=== PATIENT | female | born 1995 | race Caucasian/White ===

== ENCOUNTER 2022-03-01 14:08 | Emergency (ER) | payer OTHER ==
--- OUTSIDE RECORDS SUMMARY | 2022-03-01 14:11 | XMS REPORT | Continuity of Care Document ---
:1995 Author Organization [facility] t Address [address] Banerjee [address] [place] [id number] Care Team Providers Name Role Phone [place] Attending Clinician Unavailable AMBREEN_FARHANA Attending Clinician Unavailable AMBREEN_FARHANA Admitting Clinician Unavailable Payers Payer Name Policy Type Policy Number Effective Date Expiration Date S ct EAST - HU[employer]NA [id number] () Problems Condition Condition Condition Status Onset Resolution Last Treating Co mments Source Name Details Category Date Date Treatment Clinician Date Anxiety Anxiety Problem Active [place] 1-04 [facility] 00:[facility]: [facility] Attention Attention Problem Active [place] deficit Deficit 1-04 da hyperactiv Hyperactiv 00:00: [facility] ity ity 00 al disorder Disorder [facility] Allergies, Adverse Reactions, Alerts This patient has no known allergies or adverse reactions. Social History Smoking Status Start Date Stop Date Source Never Smoker [facility] Medications Ordered Filled Start Stop Current Ordering Indication Dosage Frequency Signature Comments Components Source Medication Medication Date Date Medication? Clinician (SIG) Name Name Vyvanse 30 Vyvanse 30 No Vyvanse 30 [place] mg capsule mg capsule 4-05 mg capsule da TAKE 1 TAKE 1 00:00: TAKE 1 [facility] CAPSULE BY CAPSULE BY 00 CAPSULE BY al MOUTH DAILY MOUTH DAILY MOUTH Health NEEDED NEEDED DAILY O utreac FOR FOR NEEDED FOR h CONCENTRATI CONCENTRATI CONCENTRAT Program ON ON ION Vyvanse 20 Vyvanse 20 No Vyvanse 20 [place] mg capsule mg capsule mg capsule da TAKE 1 TAKE 1 TAKE 1 [facility] CAPSULE BY CAPSULE BY CAPSULE BY al MOUTH DAILY MOUTH DAILY MOUTH Health NEEDED NEEDED DAILY O utreac FOR FOR NEEDED FOR h CONCENTRATI CONCENTRATI CONCENTRAT Program ON ON ION Immunizations Ordered Immunization Filled Immunization Date Status Commen ts Source Name Name Tdap Tdap 2020-10-18 Completed [facility] 13:52:00 [facility] Vital Signs Vital Name Observation Time Observation Value Comments Source Height 2021-01-17 00:00:00 68 [in_i] [place] [facility] BP Diastolic 2020-10-18 00:00:00 80 mm[Hg] [place] [facility] Height 2020-10-18 00:00:00 68 [in_i] [place] [facility] BMI (Body Mass 2020-10-18 00:00:00 18.1 kg/m2 [place]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 [facility] Index) [facility] Outreach Program BP Systolic 2020-10-18 00:00:00 124 mm[Hg] [place] [facility] Body Weight 2020-10-18 00:00:00 1902.4 [oz_av] [place]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 Procedures Procedure Date / Time Performed Performing Clinician Sourc e US, thyroid 2020-10-18 00:00:00 [facility] Extraction of [place] [facility] Plan of Care Planned Activity Planned Date Details Comments Source Future Scheduled 2021-02-25 CMP, serum or [facility] Test 00:00:00 plasma [code = Health Outrea ch CMP, serum or Program plasma] Future Scheduled 2021-02-25 PT/INR [code = [facility] Test 00:00:00 PT/INR] Health Outreach Program Future Scheduled 2021-02-25 bilirubin, [facility] Test 00:00:00 indirect, serum Health Outre ach [code = bilirubin, Program indirect, serum] Encounters Start End Encounter Admission Attending Care Care Encounter Source Date/Time Date/Time Type Type Clinicians Facility Department ID 2021-11-09 [facility] [id number] Common 14:06:28 Thais [id number] 2021-11-09 Outpatient [facility] [id number] Common 14:04:59 [id number] [facility] 2021-01-172021-01-17 Outpatient AMBREEN_FAR MEHOP MEHOP [id number]- [place] 04:55:00 04:55:00 HANA [id number] [facility] 2021-01-17 2021-01-17 [facility] [place] - [id number] M [facility] 00:00:00 00:00:00 Todd Gavin MD: 1700 [facility] [address], [place], [place] Outre [phone] h , Ph. Program 2021-01-12 2021-01-12 Outpatient AMBREEN_FAR MEHOP MEHOP 112 [id number]- [place] 03:56:00 03:56:00 HANA [id number] [facility] 2020-10-23 2020-10-23 Outpatient AMBREEN_FAR MEHOP MEHOP [id number] [place] 03:20:00 03:20:00 HANA [id number] [facility] 2020-10-23 2020-10-23 Outpatient AMBREEN_FAR MEHOP MEHOP 112 [id number]- [place] 03:20:00 03:20:00 HANA [id number] [facility] 2020-10-18 2020-10-18 Outpatient AMBREEN_FAR MEHOP MEHOP [id number] [place] 01:13:00 01:13:00 HANA [id number] [facility] 2020-10-18 2020-10-18 Ayla [facility] [place] - [id number] M at[place] 00:00:00 00:00:00 Todd Gavin MD: 1700 [facility] [address] [place] [phone] h , Ph. Program 2020-10-12 2020-10-12 Outpatient AMBREEN_FAR MEHOP MEHOP 112 [id number]- [place] 04:27:00 04:27:00 HANSai [id number] [facility] 2020-09-15 2020-09-15 Outpatient AMBREEN_FAR MEHOP MEHOP 112 [id number]- [place] 03:07:00 03:07:00 MINOR [id number] da [facility] 2020-09-08 2020-09-08 Outpatient AMBREEN_FAR [facility] [place] 09:50:00 09:50:00 HANA [id number] da [facility] Results Test Description Test Time Test Comments Results Result Comments Source Hemoglobin A1c/Hemoglobin.total in Blood 2021-01-07 00:00:00 Test Item Value Reference Range Interpretation Comme nts Hemoglobin A1c/Hemoglobin.total in Blood (test code = 4548-4) 4.8 % 4.8-5.6 Glucose mean value [Mass/volume] in Blood Estimated from 91 mg/dL glycated hemoglobin (test code = 35465-9) [id number] 00:00:00 Test Item Value Reference Range Interpretation Comments Thyrotropin [Units/volume] in 1.300 uIU/mL 0.450-4.500 Serum or Plasma by Detection limit <= 0.005 mIU/L (test code = 66764-6) [facility], [id number] 00:00:00 Test Item Value Reference Range Interpretation Comments Interpretation and review of laboratory note results (test code = 12512-5) Report (test code = 63461-3) . [facility] 2000 [facility] - Serum or [id number] 00:00:00 Test Item Value Reference Range Interpretation Comments Glucose [Mass/volume] in 77 mg/dL 65-99 Serum or Plasma (test code = 2345-7) Urea nitrogen [Mass/volume] 7 mg/dL 6-20 in Serum or Plasma (test code = 3094-0) Creatinine [Mass/volume] in 0.85 mg/dL 0.57-1.00 Serum or Plasma (test code = 2160-0) Glomerular filtration 95 mL/min/1.73 >59 rate/1.73 sq M.predicted among non-blacks [Volume Rate/Area] in Serum, Plasma or Blood by Creatinine-based formula (CKD-EPI) (test code = 49808-4) Glomerular filtration 109 mL/min/1.73 >59 rate/1.73 sq M.predicted among blacks [Volume Rate/Area] in Serum, Plasma or Blood by Creatinine-based formula (CKD-EPI) (test code = 00310-3) Urea nitrogen/Creatinine 8 9-23 L [Mass Ratio] in Serum or Plasma (test code = 3097-3) Sodium [Moles/volume] in 139 mmol/L 134-144 Serum or Plasma (test code = 2951-2) Potassium [Moles/volume] in 3.9 mmol/L 3.5-5.2 Serum or Plasma (test code = 2823-3) Chloride [Moles/volume] in 103 mmol/L 96-106 Serum or Plasma (test code = 2075-0) Carbon dioxide, total 23 mmol/L 20-29 [Moles/volume] in Serum or Plasma (test code = 2027-) Calcium [Mass/volume] in 9.4 mg/dL 8.7-10.2 Serum or Plasma (test code = 08506-0) Protein [Mass/volume] in 6.8 g/dL 6.0-8.5 Serum or Plasma (test code = 2885-2) Albumin [Mass/volume] in 4.8 g/dL 3.9-5.0 Serum or Plasma (test code = 1751-7) Globulin [Mass/volume] in 2.0 g/dL 1.5-4.5 Serum by calculation (test code = 63627-6) Albumin/Globulin [Mass Ratio] 2.4 1.2-2.2 H in Serum or Plasma (test code = 1759-0) Bilirubin.total [Mass/volume] 1.4 mg/dL 0.0-1.2 H in Serum or Plasma (test code = 1974-2) Alkaline phosphatase 47 IU/L 39-117 [Enzymatic activity/volume] in Serum or Plasma (test code = 6768-6) Aspartate aminotransferase 16 IU/L 0-40 [Enzymatic activity/volume] in Serum or Plasma (test code = 1920-8) Alanine aminotransferase 10 IU/L 0-32 [Enzymatic activity/volume] in Serum or Plasma (test code = 1742-6) [facility] W Auto Differential panel - Blood 2021-01-07 00:00:00 Test Item Value Reference Range Interpretation Comments Leukocytes [#/volume] in Blood 6.8 x10e3/uL 3.4-10.8 by Automated count (test code = 6690-2) Erythrocytes [#/volume] in 4.62 x10e6/uL 3.77-5.28 Blood by Automated count (test code = 789-8) Hemoglobin [Mass/volume] in 15.0 g/dL 11.1-15.9 Blood (test code = 718-7) Hematocrit [Volume Fraction] of 44.9 % 34.0-46.6 Blood by Automated count (test code = 4544-3) MCV [Entitic volume] by 97 fL 79-97 Automated count (test code = 787-2) MCH [Entitic mass] by Automated 32.5 pg 26.6-33.0 count (test code = 785-6) MCHC [Mass/volume] by Automated 33.4 g/dL 31.5-35.7 count (test code = 786-4) Erythrocyte distribution width 12.1 % 11.7-15.4 [Ratio] by Automated count (test code = 788-0) Platelets [#/volume] in Blood 223 x10e3/uL 150-450 by Automated count (test code = 777-3) Neutrophils/100 leukocytes in 67 % not estab. Blood by Automated count (test code = 770-8) Lymphocytes/100 leukocytes in 26 % not estab. Blood by Automated count (test code = 736-9) Monocytes/100 leukocytes in 5 % not estab. Blood by Automated count (test code = 5905-5) Eosinophils/100 leukocytes in 1 % not estab. Blood by Automated count (test code = 713-8) Basophils/100 leukocytes in 1 % not estab. Blood by Automated count (test code = 706-2) immature cells (test code = esthetician permanent makeup artist immature cells) Neutrophils [#/volume] in Blood 4.6 x10e3/uL 1.4-7.0 by Automated count (test code = 751-8) Lymphocytes [#/volume] in Blood 1.8 x10e3/uL 0.7-3.1 by Automated count (test code = 731-0) Monocytes [#/volume] in Blood 0.3 x10e3/uL 0.1-0.9 by Automated count (test code = 742-7) Eosinophils [#/volume] in Blood 0.1 x10e3/uL 0.0-0.4 by Automated count (test code = 711-2) Basophils [#/volume] in Blood 0.1 x10e3/uL 0.0-0.2 by Automated count (test code = 704-7) Immature granulocytes/100 0 % not estab. leukocytes in Blood by Automated count (test code = 06580-3) Immature granulocytes 0.0 x10e3/uL 0.0-0.1 [#/volume] in Blood by Automated count (test code = 52500-8) Nucleated erythrocytes/100 esthetician permanent makeup artist leukocytes [Ratio] in Blood by Automated count (test code = 19274-2) Morphology [Interpretation] in esthetician permanent makeup artist Blood Narrative (test code = 21643-3) [facility], [id number] 00:00:00 Test Item Value Reference Range Interpretation Comments Cholesterol [Mass/volume] in Serum 150 mg/dL 100-199 or Plasma (test code = 2093-3) Triglyceride [Mass/volume] in Serum 68 mg/dL 0-149 or Plasma (test code = 2571-8) Cholesterol in HDL [Mass/volume] in 62 mg/dL >39 Serum or Plasma (test code = 2085-9) Cholesterol in VLDL [Mass/volume] 14 mg/dL 5-40 in Serum or Plasma by calculation (test code = 56603-6) Cholesterol in LDL [Mass/volume] in 74 mg/dL 0-99 Serum or Plasma by calculation (test code = 70508-9) Laboratory comment [Text] in Report esthetician permanent makeup artist Narrative (test code = 20100-8) Cholesterol.total/Cholesterol.in 2.4 ratio 0.0-4.4 HDL [Mass ratio] in Serum or Plasma (test code = 9830-1) Cholesterol in LDL/Cholesterol in 1.2 ratio 0.0-3.2 HDL [Mass Ratio] in Serum or Plasma (test code = 50633-4) [facility]
--- NOTE | 2022-03-01 14:43 | RAD REPORT ---
EXAM DESCRIPTION: CT - Head Brain Wo Cont - 03/01/2022 2:36 pm CLINICAL HISTORY: Dizziness, non-specific COMPARISON: No comparisons TECHNIQUE: All CT scans are performed using dose optimization technique as appropriate and may inclu de automated exposure control or mA/KV adjustment according to patient size. FINDINGS: No intracranial hemorrhage, hydrocephalus or extra-axial fluid collection.No areas of brai n edema or evidence of midline shift. The paranasal sinuses and mastoids are clear. The calvarium is intact. IMPRESSION: No acute intracranial abnormality.
--- NOTE | 2022-03-01 15:04 | RAD REPORT ---
EXAM DESCRIPTION: RAD - Chest Single View - 03/01/2022 2:56 pm CLINICAL HISTORY: sob, dizziness COMPARISON: No comparisons FINDINGS: Lines: None. Lungs: No evidence of edema or pneumonia. Pleural: No significant pleural effusions or pneumothorax. Cardiac: The heart size is within normal limits. Bones: No acute fractures. Other: IMPRESSION: No acute cardiopulmonary disease.
[2022-03-01 15:13] LABS: Absolute Lymphocytes (CBC) 1.5 K/uL (0.7-4.9); Hematocrit 44.1 % (36.0-45.0); Lymphocytes % 20.7 % (15.3-44.8); MPV 7.8 fL (7.6-11.3); RBC Red Blood Cell Count 4.75 M/uL (3.86-4.86)
[2022-03-01 15:15] LABS: Protime INR 1.12
[2022-03-01 15:18] LABS: Urine Blood Negative (Negative); Urine Glucose Negative (Negative); Urine Protein Negative (Negative)
[2022-03-01 15:35] LABS: ALT/SGPT 25 U/L (12-78); AST/SGOT 14 U/L (15-37); Albumin 4.5 g/dL (3.4-5.0); Alkaline Phosphatase 55 U/L (45-117); BUN Blood Urea Nitrogen 9 mg/dL (7-18); Bicarbonate 26 mmol/L (21-32); Bilirubin Direct 0.2 mg/dL (0-0.2); Glomerular Filtration Rate 96 ml/min (=/>90); Glucose Level 91 mg/dL (74-106); NT PRO-BNP 46 pg/mL (<125); Potassium 3.3 mmol/L (3.5-5.1); Protein, Total 7.8 g/dL (6.4-8.2); Sodium Level 137 mmol/L (136-145)
[2022-03-01 15:52] LABS: Troponin High Sensitivity < 3.0 pg/mL (<58.9)
[2022-03-01] MEDS ORDERED: DIAZEPAM 10 MG/2 ML INJ SYRINGE ONE (18:10)
[2022-03-01] MEDS ORDERED: dexAMETHasone 10 MG/ML VIAL ONE (18:10)
--- NOTE | 2022-03-01 19:04 | ER ---
Nurse's Notes [facility] Name: Matt Commercial Construction Project Manager Age: 26 yrs Sex: Female : 1995 Arrival Date: 03/01/2022 Time: 14:09 Bed 12 Private MD: Thais Fleming Diagnosis: Vertigo Presentation: 03/01 14:13 Chief complaint: Patient states: she had a dr appointment this morning and was sent ap3 over to be evaluated. Patient states she feels dizzy, confused, and feels off for approx the last 2 weeks. Patient states she feels like her symptoms have gotten worse over the last few days. Coronavirus screen: At this time, the client does not indicate any symptoms associated with coronavirus-19. Ebola Screen: No symptoms or risks identified at this time. Risk Assessment: Do you want to hurt yourself or someone else? Patient reports no desire to harm self or others. Onset of symptoms was February 15, 2022. 14:13 Method Of Arrival: Wheelchair ap3 14:20 Initial Sepsis Screen: Does the patient meet any 2 criteria? No. Patient's initial ap3 sepsis screen is negative. Does the patient have a suspected source of infection? No. Patient's initial sepsis screen is negative. 14:20 Acuity: NAS 3 ap3 Triage Assessment: 14:20 General: Appears in no apparent distress. uncomfortable, Behavior is cooperative, ap3 anxious. Pain: Denies pain. Neuro: Reports dizziness, a syncopal episode weakness. Cardiovascular: Patient's skin is warm and dry. Respiratory: Airway is patent Respiratory effort is even, unlabored. ROTOR WINDER: 14:21 LMP 02/22/2022 ap3 Historical: - Allergies: 14:16 No Known Allergies; ap3 - PMHx: 14:16 Asthma; Depressive disorder; Anxiety; ADHD; Migraine; chronic fatigue; ap3 - Immunization history:: Client reports receiving the 2nd dose of the Covid vaccine, Flu vaccine is up to date. - Social history:: Smoking status: Patient denies any tobacco usage or history of. Patient uses alcohol, occasionally. Screenin:19 Abuse screen: Denies threats or abuse. Nutritional screening: No deficits noted. ap3 Tuberculosis screening: No symptoms or risk factors identified. Assessment: 17:00 General: Appears in no apparent distress. comfortable, Behavior is calm, cooperative, jb4 appropriate for age. Pain: Denies pain. Neuro: Level of Consciousness is awake, alert, obeys commands, Oriented to person, place, time, situation, Reports dizziness. Cardiovascular: Patient's skin is warm and dry. Respiratory: Airway is patent Respiratory effort is even, unlabored, Respiratory pattern is regular, symmetrical. Derm: Skin is intact, Skin is pink, warm \T\ dry. 17:00 Reassessment: Patient appears in no apparent distress at this time. Patient and/or jb4 family updated on plan of care and expected duration. Pain level reassessed. Patient is alert, oriented x 3, equal unlabored respirations, skin warm/dry/pink. Vital Signs: 14:13 BP 125 / 100; Pulse 92; Resp 17; Temp 99.8; Pulse Ox 100% ; ap3 19:24 BP 115 / 91; Pulse 85; Resp 16; Pulse Ox 98% on R/A; jb4 NIH Stroke Scale Scores: 14:20 NIHSS Score: 0 ap3 ED Course: 14:09 Patient arrived in ED. as 14:09 Thais Fleming is Private Physician. as 14:09 Iglesia Bello PA is PHCP. [facility] 14:10 Landry Rios DO is Attending Physician. [facility] 14:20 Triage completed. ap3 14:21 Arm band placed on right wrist. ap3 14:37 CT Head Brain wo Cont In Process Unspecified. EDMS 14:57 XRAY Chest (1 view) In Process Unspecified. EDMS 15:06 Inserted saline lock: 20 gauge in left antecubital area, using aseptic technique. Blood zm collected. 15:07 Basic Metabolic Panel Sent. zm 15:07 CBC with Diff Sent. zm 15:07 LFT's Sent. zm 15:07 Magnesium Sent. zm 15:07 NT PRO-BNP Sent. zm 15:07 PT-INR Sent. zm 15:07 Troponin HS Sent. zm 15:19 Troponin HS Sent. zm 15:19 NT PRO-BNP Sent. zm 15:19 Magnesium Sent. zm 15:19 LFT's Sent. zm 15:19 Basic Metabolic Panel Sent. zm 18:44 Ramy Molina, BRIAN is Primary Nurse. jb4 19:03 Chas Trevino MD is Referral Physician. [facility] 19:03 Hany Foster MD is Referral Physician. [facility] 19:24 No provider procedures requiring assistance completed. IV discontinued, intact, jb4 bleeding controlled, No redness/swelling at site. Pressure dressing applied. Administered Medications: 17:07 CANCELLED (Duplicate Order): Valium (diazepam) 2 mg IVP once jmm 18:15 Drug: Decadron - Dexamethasone 10 mg Route: IVP; Site: left antecubital; jb4 19:24 Follow up: Response: No adverse reaction jb4 18:15 Drug: Valium (diazepam) 5 mg Route: IVP; Site: left antecubital; jb4 19:24 Follow up: Response: No adverse reaction jb4 Medication: 14:21 VIS not applicable for this client. ap3 Outcome: 19:04 Discharge ordered by . [facility] 19:24 Discharged to home ambulatory. [facility] 19:24 Condition: stable 19:24 Discharge instructions given to patient, Instructed on discharge instructions, follow up and referral plans. medication usage, Demonstrated understanding of instructions, follow-up care, medications, Prescriptions given X 3. 19:24 Patient left the ED. jb4 NIH Stroke Scale - NIH Stroke Score Date: 03/01/2022 Time: 14:20 Total Score = 0 1a. Level of Consciousness (LOC) - 0(Alert) 1b. Level of Consciousness (LOC) (Month \T\ Age) - 0(Both) 1c. LOC Commands (Open \T\ Closes Eyes/Radiator Fitter) - 0(Both) 2. Best Gaze (Lateral Gaze Paresis) - 0(Normal) 3. Visual Field Loss - 0(No visual loss) 4. Facial Palsy - 0(Normal) 5a. Left Arm: Motor (10-second hold) - 0(No drift) 5b. Right Arm: Motor (10-second hold) - 0(No drift) 6a. Left Leg: Motor (5-second hold - always test supine) - 0(No drift) 6b. Right Leg: Motor (5-second hold - always test supine) - 0(No drift) 7. Limb Ataxia (finger/nose \T\ heel/godfrey - test with eyes open) - 0(Absent) 8. Sensory Loss (pinprick arms/legs/face) - 0(Normal) 9. Best Language: Aphasia (description/naming/reading) - 0(No aphasia) 10. Dysarthria (speech clarity - read or repeat words) - 0(Normal) 11. Extinction and Inattention (visual/tactile/auditory/spatial/personal) - 0(No abnormality) Initials: ap3 Signatures: Dispatcher [employer] Iglesia Byrnes PA PA jmm Martinez, Amelia as Bryson, James, RN RN jb4 Karolina Foster RN RN ap3 Jesika Wade
--- NOTE | 2022-03-01 19:05 | EDPHYS ---
Physician Documentation [facility] Name: Matt Nanny Caregiver Age: 26 yrs Sex: Female : 1995 Arrival Date: 03/01/2022 Time: 14:09 Bed 12 Private MD: Thais Fleming ED Physician Landry Rios HPI: 03/01 14:20 This 26 yrs old Female presents to ER via Wheelchair with complaints of Vertigo, jmm Syncope. 14:20 The patient presents with dizziness. Onset: The symptoms/episode began/occurred jmm acutely, 2 week(s) ago. Modifying factors: The symptoms are alleviated by nothing, the symptoms are aggravated by movement of head, changing position. This is a 26-year-old female with history of asthma, depression, anxiety, ADHD the presents emerged department with complaints of dizziness beginning approximately 2 weeks ago after an upper respiratory infection/bronchitis/influenza which occurred about a month ago. Patient also complains of generalized spasms in particular at the joints.. 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 - Social history:: Smoking status: Patient denies any tobacco usage or history of. Patient uses alcohol, occasionally. ROS: 14:20 Constitutional: Negative for fever, chills, and weight loss, Cardiovascular: Negative jmm for chest pain, palpitations, and edema, Respiratory: Negative for shortness of breath, cough, wheezing, and pleuritic chest pain. 14:20 Neuro: Positive for dizziness. 14:20 All other systems are negative. Exam: 14:20 Constitutional: This is a well developed, well nourished patient who is awake, alert, jmm and in no acute distress. Head/Face: atraumatic. Eyes: EOMI, no conjunctival erythema appreciated ENT: Moist Mucus Membranes Neck: Trachea midline, Supple Chest/axilla: Normal chest wall appearance and motion. Cardiovascular: Regular rate and rhythm. No edema appreciated Respiratory: Normal respirations, no respiratory distress appreciated Abdomen/GI: Non distended, soft Back: Normal ROM Skin: General appearance color normal MS/ Extremity: Moves all extremities, no obvious deformities appreciated, no edema noted to the lower extremities Neuro: Awake and alert Psych: Behavior is normal, Mood is normal, Patient is cooperative and pleasant Vital Signs: 14:13 BP 125 / 100; Pulse 92; Resp 17; Temp 99.8; Pulse Ox 100% ; ap3 19:24 BP 115 / 91; Pulse 85; Resp 16; Pulse Ox 98% on R/A; jb4 NIH Stroke Scale Scores: 14:20 NIHSS Score: 0 ap3 MDM: 14:22 Patient medically screened. [facility] 19:02 Data reviewed: vital signs, nurses notes. Counseling: I had a detailed discussion with dudley the patient and/or guardian regarding: the historical points, exam findings, and any diagnostic results supporting the discharge/admit diagnosis, lab results, radiology results, the need for outpatient follow up, to return to the emergency department if symptoms worsen or persist or if there are any questions or concerns that arise at home. ED course: Patient states she feels much better.. I will put the patient on a course of steroids for presumed labyrinthitis. Patient otherwise advised to follow-up with neurology for further evaluation. Patient understood and agrees plan of care.. 03/01 14:20 Order name: Basic Metabolic Panel; Complete Time: 15:58 [facility] 03/01 14:20 Order name: CBC with Diff; Complete Time: 15:17 [facility] 03/01 14:20 Order name: LFT's; Complete Time: 15:58 [facility] 03/01 14:20 Order name: Magnesium; Complete Time: 15:58 [facility] 03/01 14:20 Order name: NT PRO-BNP; Complete Time: 15:58 [facility] 03/01 14:20 Order name: PT-INR; Complete Time: 15:17 [facility] 03/01 14:20 Order name: Troponin HS; Complete Time: 15:58 [facility] 03/01 14:20 Order name: XRAY Chest (1 view); Complete Time: 15:17 [facility] 03/01 14:20 Order name: CT Head Brain wo Cont; Complete Time: 14:54 [facility] 03/01 15:19 Order name: Urine Dipstick-Ancillary; Complete Time: 15:19 [facility] 03/01 15:19 Order name: Urine --Ancillary (enter results); Complete Time: 15:45 03/01 14:20 Order name: EKG; Complete Time: 14:21 [facility] 03/01 14:20 Order name: Cardiac monitoring; Complete Time: 17:57 [facility] 03/01 14:20 Order name: EKG - Nurse/Tech; Complete Time: 17:57 [facility] 03/01 14:20 Order name: IV Saline Lock; Complete Time: 15:06 [facility] 03/01 14:20 Order name: Labs collected and sent; Complete Time: 15:07 [facility] 03/01 14:20 Order name: O2 Per Protocol; Complete Time: 17:57 [facility] 03/01 14:20 Order name: O2 Sat Monitoring; Complete Time: 17:57 [facility] 03/01 14:32 Order name: Urine Dipstick-Ancillary (obtain specimen); Complete Time: 15:19 [facility] 03/01 14:32 Order name: Urine Test (obtain specimen); Complete Time: 15:19 [facility] Administered Medications: 17:07 CANCELLED (Duplicate Order): Valium (diazepam) 2 mg IVP once [facility] 18:15 Drug: Decadron - Dexamethasone 10 mg Route: IVP; Site: left antecubital; jb4 19:24 Follow up: Response: No adverse reaction jb4 18:15 Drug: Valium (diazepam) 5 mg Route: IVP; Site: left antecubital; jb4 19:24 Follow up: Response: No adverse reaction jb4 Disposition: 22:03 Co-signature as Attending Physician, Landry ROOT was immediately available on-site ms3 in the Emergency Department for consultation in the care of the patient. . Disposition Summary: 03/01/22 19:04 Discharge Ordered Location: Home [facility] Condition: Stable [facility] Diagnosis - Vertigo [facility] Followup: [facility] - With: Chas Trevino MD - When: 2 - 3 days - Reason: Recheck today's complaints, Continuance of care, Re-evaluation by your physician Followup: [facility] - With: Hany Foster MD - When: 2 - 3 days - Reason: Recheck today's complaints, Continuance of care, Re-evaluation by your physician Discharge Instructions: - Discharge Summary Sheet [facility] - Vertigo [facility] - Labyrinthitis [facility] Forms: - Medication Reconciliation Form [facility] - Thank You Letter [facility] - Antibiotic Education [facility] - Prescription Opioid Use [facility] Prescriptions: - ondansetron 4 mg Oral tablet,disintegrating - place 1 tablet by TRANSLINGUAL route every 4-6 hours As needed; 20 tablet; [facility] Refills: 0, Product Selection Permitted - Prednisone 20 mg Oral Tablet - take 3 tablets by ORAL route once daily for 5 days; 15 tablet; Refills: 0, [facility] Product Selection Permitted - Valium 5 mg Oral Tablet - take 1 tablet by ORAL route every 8 hours As needed; 20 tablet; Refills: 0, [facility] Product Selection Permitted NIH Stroke Scale - NIH Stroke Score Date: 03/01/2022 Time: 14:20 Total Score = 0 1a. Level of Consciousness (LOC) - 0(Alert) 1b. Level of Consciousness (LOC) (Month \T\ Age) - 0(Both) 1c. LOC Commands (Open \T\ Closes Eyes/Fireworks Maker) - 0(Both) 2. Best Gaze (Lateral Gaze Paresis) - 0(Normal) 3. Visual Field Loss - 0(No visual loss) 4. Facial Palsy - 0(Normal) 5a. Left Arm: Motor (10-second hold) - 0(No drift) 5b. Right Arm: Motor (10-second hold) - 0(No drift) 6a. Left Leg: Motor (5-second hold - always test supine) - 0(No drift) 6b. Right Leg: Motor (5-second hold - always test supine) - 0(No drift) 7. Limb Ataxia (finger/nose \T\ heel/godfrey - test with eyes open) - 0(Absent) 8. Sensory Loss (pinprick arms/legs/face) - 0(Normal) 9. Best Language: Aphasia (description/naming/reading) - 0(No aphasia) 10. Dysarthria (speech clarity - read or repeat words) - 0(Normal) 11. Extinction and Inattention (visual/tactile/auditory/spatial/personal) - 0(No abnormality) Initials: ap3 Signatures: Dispatcher [employer] EDIglesia Hearn PA PA jmm Bryson, James RN RN jb4 Karolina Foster RN RN ap3 Landry Rios DO DO ms3 Corrections: (The following items were deleted from the chart) 17:07 14:20 Valium (diazepam) 2 mg IVP once ordered. dudleym dudleym
[2022-03-01 19:47] VITALS: TEMP 99.8
[2022-03-01 19:49] VITALS: BP 115/91; O2SAT 98
--- NOTE | 2022-03-02 07:38 | EKG ---
Test Date: 2022-03-01 Test Time: 14:22:33 [employer] Development Project Leader: ALP MEASUREMENT RESULTS: Intervals: Rate: 86 MI: 138 QRSD: 78 QT: 386 QTc: 461 Mcbrides: P: 84 MI: 138 QRS: 88 T: 37 INTERPRETIVE STATEMENTS: Normal sinus rhythm with sinus arrhythmia Normal ECG No previous ECG available for comparison Electronically Signed On 03-02-22 07:37:03 CDT by Estrada Fletcher
== END 2022-03-01 19:24 | disposition home or self-care (01) ==
LOC: ER 14:08
DX: R42 Dizziness and giddiness (principal); F32.A Depression, unspecified; F41.9 Anxiety disorder, unspecified
CPT/HCPCS: 93005; 85025; 80048; 36415; 83735; 81025; 85610; 80076; 81003; 84484; 83880; 70450; 71045; 96375; 96374; 99284; J3360; J1100